=== PATIENT | female | born 1955 | race Caucasian/White ===

== ENCOUNTER → 2016-11-28 | Outpatient (CLI) | payer OTHER ==
[~2016-11-28] MED LIST: ALBU8.5H3 INH; ALPR0.25 PO; AMIO200T42 PO; AMLO2.5T PO; ASPI-621 PO; ASPI-650 PO; CARI350T14 PO; CELE200C PO; DOCU-30 PO; ESTR1PAT65 TP; FLORICET PO; FURO-92 PO; LOSA50TA6 PO; METO-93 PO; METO-95 PO; OXYC5CAP4 PO; PANT40TA5 PO; POTA20TA14 PO; PROGESTERON TP; SIMV10TA3 PO; TEST60GE2 TP; THYR60TA PO; TRAM50TA2 PO; WARF2TAB7 PO-COUM; [UNRECOGNIZED DRUG - OTHER] PO; sumatriptan PO
== END | disposition home or self-care (01) ==
LOC: RAD 13:16
PROVIDERS: ATTEND Internal Medicine
DX: R91.8 Other nonspecific abnormal finding of lung field (principal)
CPT/HCPCS: 71250

== ENCOUNTER → 2016-12-07 | Outpatient (CLI) | payer OTHER ==
[~2016-12-07] MED LIST changes: -ALBU8.5H3 INH; +ALBU8.5H8 INH; +DOCU-131 PO; -DOCU-30 PO; +OXYC5CAP2 PO; -OXYC5CAP4 PO
== END | disposition home or self-care (01) ==
LOC: PETCFH 13:07
PROVIDERS: ATTEND Internal Medicine
DX: R91.1 Solitary pulmonary nodule (principal)
CPT/HCPCS: 78815; A9552

== ENCOUNTER → 2019-09-24 | Outpatient (CLI) | payer MEDICARE ==
[~2019-09-24] MED LIST changes: -AMLO2.5T PO; +AMLO2.5T5 PO; -ASPI-621 PO; +ASPI81TA45 PO; +LOSA50TA14 PO; -LOSA50TA6 PO; +SIMV10TA18 PO; -SIMV10TA3 PO; -WARF2TAB7 PO-COUM; +WARF2TAB99 PO-COUM
== END | disposition home or self-care (01) ==
LOC: CFH 10:36
PROVIDERS: ATTEND Internal Medicine Cardiovascular Disease
DX: I08.3 Combined rheumatic disorders of mitral, aortic and tricuspid valves (principal); E78.5 Hyperlipidemia, unspecified; Z87.891 Personal history of nicotine dependence; Z95.2 Presence of prosthetic heart valve
CPT/HCPCS: 93306

== ENCOUNTER → 2020-09-20 | Outpatient (CLI) | payer MEDICARE ==
[~2020-09-20] MED LIST changes: -ASPI-650 PO; +ASPI325T20 PO; +CARI-389 PO; -CARI350T14 PO; -PANT40TA5 PO; +PANT40TA6 PO
== END | disposition home or self-care (01) ==
LOC: CFH 13:33
PROVIDERS: ATTEND Internal Medicine Cardiovascular Disease
DX: I08.1 Rheumatic disorders of both mitral and tricuspid valves (principal)
CPT/HCPCS: 93306

== ENCOUNTER → 2020-11-08 | Outpatient (CLI) | payer MEDICARE | END | disposition home or self-care (01) | LOC: CFH 14:02 | PROVIDERS: ATTEND Internal Medicine | DX: R91.8 Other nonspecific abnormal finding of lung field (principal) | CPT/HCPCS: 71250 ==